=== PATIENT | female | born 1980 | race Caucasian/White ===

== ENCOUNTER 2022-02-07 05:33 | Emergency (ER) | payer MEDICAID, OTHER ==
[~2022-02-07] VITALS: Ht 172.7 cm; Wt 79.0 kg
[~2022-02-07 05:33] MED LIST: ARIP10TA38 PO; FLUO10CA24 PO; TRUVT PO; [UNRECOGNIZED DRUG - CODE] PO
[2022-02-07 05:39] VITALS: BP 130/90
[2022-02-07 08:25] LABS: BASOPHILS % (AUTO) 0.9 % (0.0-2.0); EOSINOPHILS % (AUTO) 0.8 % (1.0-6.0); HEMOGLOBIN 13.3 g/dL (12.0-16.0); LYMPHOCYTES # (AUTO) 2.1 K/uL (1.0-4.8); LYMPHOCYTES % (AUTO) 49.9 % (22.0-44.0); MEAN CORPUSCULAR HEMOGLOBIN 33.7 pg (26.0-34.0); MEAN CORPUSCULAR HGB CONC 35.1 G/dL (31.0-37.0); MEAN CORPUSCULAR VOLUME 96 fL (80-100); MONOCYTES # (AUTO) 0.4 K/uL (0.1-1.0); MONOCYTES % (AUTO) 10.3 % (2.0-9.0); NEUTROPHILS # (AUTO) 1.6 K/uL (1.8-7.7); NEUTROPHILS % (AUTO) 38.1 % (40.0-70.0); PLATELET COUNT (AUTO) 238 K/uL (150-450); RED BLOOD CELL COUNT(AUTO) 3.95 MIL/uL (4.00-5.20); RED CELL DISTRIBUTION WIDTH 14.2 % (11.5-14.5)
[2022-02-07 08:41] LABS: ALANINE AMINOTRANSFERASE 15 U/L (12-78); ALBUMIN 3.5 g/dL (3.4-5.0); ALKALINE PHOSPHATASE 92 U/L (46-116); ANION GAP 7 mmol/L (8-16); ASPARTATE AMINOTRANSFERASE 27 U/L (15-37); BILIRUBIN,TOTAL 0.4 mg/dL (0.1-1.0); CARBON DIOXIDE 29 mmol/L (22-29); CHLORIDE 105 mmol/L (98-107); CREATININE 0.97 mg/dL (0.60-1.30); GLUCOSE,RANDOM 99 mg/dL (70-110); SODIUM SERUM 141 mmol/L (136-145); TOTAL PROTEIN, SERUM 7.2 g/dL (6.4-8.2); UREA NITROGEN, BLOOD 13 mg/dL (7-18)
[2022-02-07 08:45] LABS: GLOMERULAR FILTR. RATE CALC > 60 mL/min (>60); POTASSIUM 2.8 mmol/L (3.5-5.1)
[2022-02-07] MEDS ORDERED: QUEtiapine FUMARATE 25 MG TABLET PO ONE (09:45)
[2022-02-07] MEDS ORDERED: LORazepam 1 MG TABLET PO ONE (09:45)
[2022-02-07] MEDS ORDERED: POTASSIUM CHLORIDE 20 MEQ ER TABLET PO ONE (10:00)
[2022-02-14] MEDS ORDERED: VALA100026 PO (12:59)
[2022-02-14] MEDS ORDERED: DIVA-112 PO (12:59)
[2022-02-14] MEDS ORDERED: BICT1TAB PO (12:59)
[2022-02-14] MEDS ORDERED: PREG100C55 PO (12:59)
[2022-02-14] MEDS ORDERED: OMEP20CA13 PO (12:59)
[2022-02-14] MEDS ORDERED: DULO-114 PO (12:59)
[2022-02-14] MEDS ORDERED: PRAZ1 PO (12:59)
[2022-02-14] MEDS ORDERED: ATOR40TA71 PO (12:59)
[2022-02-14] MEDS ORDERED: LIDO700A30 TD (12:59)
[2022-02-14] MEDS ORDERED: HYDR-4808 PO (12:59)
[2022-02-14] MEDS ORDERED: EPIN0.3P19 IM (12:59)
[2022-02-14] MEDS ORDERED: TRAZ-252 PO (12:59)
== END 2022-02-07 10:48 | disposition home or self-care (01) ==
LOC: EMS 06:33
DX: F41.9 Anxiety disorder, unspecified (principal); E87.6 Hypokalemia; F20.9 Schizophrenia, unspecified; F17.210 Nicotine dependence, cigarettes, uncomplicated; F15.90 Other stimulant use, unspecified, uncomplicated; Z86.59 Personal history of other mental and behavioral disorders; Z90.49 Acquired absence of other specified parts of digestive tract; Z88.2 Allergy status to sulfonamides; Z88.8 Allergy status to other drugs, medicaments and biological substances
CPT/HCPCS: 99284; 80053; 85025; 36415; G0480

== ENCOUNTER 2022-02-10 19:00 | Emergency (ER) | payer MEDICAID ==
[~2022-02-10] VITALS: Ht 160 cm; Wt 77.3 kg
[2022-02-10 20:11] LABS: COVID AG,FIA SOURCE NASOPHARYNGEAL
[2022-02-10 20:43] LABS: INFLUENZA TYPE A NEGATIVE FOR TYPE A (NEGATIVE); INFLUENZA TYPE B NEGATIVE FOR TYPE B (NEGATIVE)
[2022-02-10 21:25] LABS: BASOPHILS % (AUTO) 0.2 % (0.0-2.0); EOSINOPHILS % (AUTO) 0.5 % (1.0-6.0); HEMATOCRIT 40.7 % (36-46); HEMOGLOBIN 13.8 g/dL (12.0-16.0); LYMPHOCYTES # (AUTO) 2.9 K/uL (1.0-4.8); LYMPHOCYTES % (AUTO) 42.5 % (22.0-44.0); MEAN CORPUSCULAR HEMOGLOBIN 33.4 pg (26.0-34.0); MEAN CORPUSCULAR VOLUME 98 fL (80-100); MONOCYTES # (AUTO) 0.6 K/uL (0.1-1.0); MONOCYTES % (AUTO) 8.5 % (2.0-9.0); NEUTROPHILS # (AUTO) 3.3 K/uL (1.8-7.7); NEUTROPHILS % (AUTO) 48.3 % (40.0-70.0); PLATELET COUNT (AUTO) 303 K/uL (150-450); RED BLOOD CELL COUNT(AUTO) 4.14 MIL/uL (4.00-5.20); RED CELL DISTRIBUTION WIDTH 14.7 % (11.5-14.5)
[2022-02-10 21:39] LABS: ALBUMIN 3.5 g/dL (3.4-5.0); BILIRUBIN,TOTAL 0.4 mg/dL (0.1-1.0); CALCIUM, TOTAL 9.4 mg/dL (8.8-10.5); CREATININE 1.04 mg/dL (0.60-1.30); TOTAL PROTEIN, SERUM 7.6 g/dL (6.4-8.2)
[2022-02-10] MEDS ORDERED: POTASSIUM CHLORIDE 20 MEQ ER TABLET PO ONE (22:30)
[2022-02-10] MEDS ORDERED: ALBUTEROL SULFATE HFA 90 MCG/PUFF 8 GM INHALER IH ONE (22:45)
[2022-02-10 23:23] VITALS: BP 122/66
[2022-02-14] MEDS ORDERED: PRAZ1 PO (12:59)
[2022-02-14] MEDS ORDERED: LIDO700A30 TD (12:59)
[2022-02-14] MEDS ORDERED: TRAZ-252 PO (12:59)
[2022-02-14] MEDS ORDERED: EPIN0.3P19 IM (12:59)
[2022-02-14] MEDS ORDERED: DULO-114 PO (12:59)
[2022-02-14] MEDS ORDERED: VALA100026 PO (12:59)
[2022-02-14] MEDS ORDERED: PREG100C55 PO (12:59)
[2022-02-14] MEDS ORDERED: DIVA-112 PO (12:59)
[2022-02-14] MEDS ORDERED: OMEP20CA13 PO (12:59)
[2022-02-14] MEDS ORDERED: ATOR40TA71 PO (12:59)
[2022-02-14] MEDS ORDERED: HYDR-4808 PO (12:59)
[2022-02-14] MEDS ORDERED: BICT1TAB PO (12:59)
== END 2022-02-10 23:29 | disposition home or self-care (01) ==
LOC: EMS 19:01
DX: J45.909 Unspecified asthma, uncomplicated (principal); E87.6 Hypokalemia; F15.10 Other stimulant abuse, uncomplicated; F17.210 Nicotine dependence, cigarettes, uncomplicated; F20.9 Schizophrenia, unspecified; Z86.59 Personal history of other mental and behavioral disorders; Z90.49 Acquired absence of other specified parts of digestive tract; Z88.2 Allergy status to sulfonamides; Z88.8 Allergy status to other drugs, medicaments and biological substances; Z20.822 Contact with and (suspected) exposure to COVID-19
CPT/HCPCS: 71045; 80053; 84703; 85025; 87804; 94640; 99284; 99406; J3535; 36415-L1; 36415-TC

== ENCOUNTER 2022-02-12 23:15 | Emergency (ER) | payer MEDICAID ==
[~2022-02-12] VITALS: Ht 160 cm; Wt 80.9 kg
[2022-02-13] MEDS ORDERED: OLANZapine 5 MG TABLET PO ONE (00:45)
[2022-02-13 01:00] VITALS: BP 100/72
[2022-02-13 01:04] LABS: BASOPHILS % (AUTO) 0.4 % (0.0-2.0); EOSINOPHILS % (AUTO) 1.2 % (1.0-6.0); HEMATOCRIT 39.2 % (36-46); HEMOGLOBIN 13.4 g/dL (12.0-16.0); LYMPHOCYTES # (AUTO) 3.1 K/uL (1.0-4.8); LYMPHOCYTES % (AUTO) 39.4 % (22.0-44.0); MEAN CORPUSCULAR HEMOGLOBIN 33.5 pg (26.0-34.0); MEAN CORPUSCULAR HGB CONC 34.2 G/dL (31.0-37.0); MEAN CORPUSCULAR VOLUME 98 fL (80-100); MONOCYTES # (AUTO) 0.7 K/uL (0.1-1.0); MONOCYTES % (AUTO) 8.3 % (2.0-9.0); NEUTROPHILS % (AUTO) 50.7 % (40.0-70.0); PLATELET COUNT (AUTO) 276 K/uL (150-450); RED BLOOD CELL COUNT(AUTO) 3.99 MIL/uL (4.00-5.20); RED CELL DISTRIBUTION WIDTH 15.3 % (11.5-14.5)
[2022-02-13 01:08] LABS: ANION GAP -2 mmol/L (8-16); CALCIUM, TOTAL 9.4 mg/dL (8.8-10.5); CARBON DIOXIDE 33 mmol/L (22-29); CHLORIDE 104 mmol/L (98-107); CREATININE 1.05 mg/dL (0.60-1.30); GLUCOSE,RANDOM 87 mg/dL (70-110); SODIUM SERUM 135 mmol/L (136-145); UREA NITROGEN, BLOOD 21 mg/dL (7-18)
[2022-02-13 01:09] LABS: GLOMERULAR FILTR. RATE CALC 57 mL/min (>60)
[2022-02-13 01:14] LABS: ALANINE AMINOTRANSFERASE 14 U/L (12-78); ALBUMIN 3.1 g/dL (3.4-5.0); ALKALINE PHOSPHATASE 100 U/L (46-116); ASPARTATE AMINOTRANSFERASE 20 U/L (15-37); BILIRUBIN,TOTAL 0.4 mg/dL (0.1-1.0); TOTAL PROTEIN, SERUM 6.8 g/dL (6.4-8.2)
[2022-02-13 01:41] LABS: COVID AG,FIA SOURCE NASAL SWAB
[2022-02-14] MEDS ORDERED: DULO-114 PO (12:59)
[2022-02-14] MEDS ORDERED: TRAZ-252 PO (12:59)
[2022-02-14] MEDS ORDERED: LIDO700A30 TD (12:59)
[2022-02-14] MEDS ORDERED: VALA100026 PO (12:59)
[2022-02-14] MEDS ORDERED: DIVA-112 PO (12:59)
[2022-02-14] MEDS ORDERED: PRAZ1 PO (12:59)
[2022-02-14] MEDS ORDERED: PREG100C55 PO (12:59)
[2022-02-14] MEDS ORDERED: HYDR-4808 PO (12:59)
[2022-02-14] MEDS ORDERED: ATOR40TA71 PO (12:59)
[2022-02-14] MEDS ORDERED: EPIN0.3P19 IM (12:59)
[2022-02-14] MEDS ORDERED: OMEP20CA13 PO (12:59)
[2022-02-14] MEDS ORDERED: BICT1TAB PO (12:59)
== END 2022-02-13 02:57 | disposition home or self-care (01) ==
LOC: EMS 23:16
DX: F20.9 Schizophrenia, unspecified (principal); F17.210 Nicotine dependence, cigarettes, uncomplicated; F15.90 Other stimulant use, unspecified, uncomplicated; Z87.09 Personal history of other diseases of the respiratory system; Z86.59 Personal history of other mental and behavioral disorders; Z90.49 Acquired absence of other specified parts of digestive tract; Z88.2 Allergy status to sulfonamides; Z88.8 Allergy status to other drugs, medicaments and biological substances; Z20.822 Contact with and (suspected) exposure to COVID-19
CPT/HCPCS: 99284; 87426; 80053; 85025; 36415; G0480

== ENCOUNTER 2022-04-10 01:37 | Emergency (ER) | payer MEDICAID, OTHER ==
[~2022-04-10] VITALS: Ht 160 cm; Wt 67.0 kg
[~2022-04-10 01:37] MED LIST changes: +ATOR40TA71 PO; +BICT1TAB PO; +DIVA-112 PO; +DULO-114 PO; +EPIN0.3P19 IM; -FLUO10CA24 PO; +HYDR-4808 PO; +LIDO700A30 TD; +OMEP20CA13 PO; +PRAZ1 PO; +PREG100C55 PO; +TRAZ-252 PO; -TRUVT PO; +VALA100026 PO; -[UNRECOGNIZED DRUG - CODE] PO
[2022-04-10 01:51] VITALS: BP 127/75
[2022-04-10 02:38] LABS: COVID AG,FIA SOURCE NASAL SWAB
[2022-04-10 03:10] LABS: INFLUENZA TYPE A NEGATIVE FOR TYPE A (NEGATIVE); INFLUENZA TYPE B NEGATIVE FOR TYPE B (NEGATIVE)
== END 2022-04-10 05:17 | disposition left against medical advice (07) ==
LOC: EMS 01:41
DX: Z53.21 Procedure and treatment not carried out due to patient leaving prior to being seen by health care provider (principal); Z20.822 Contact with and (suspected) exposure to COVID-19
CPT/HCPCS: 87804

== ENCOUNTER 2022-08-02 21:15 | Emergency (ER) | payer OTHER ==
[~2022-08-02] VITALS: Ht 162.6 cm; Wt 55.0 kg
[2022-08-02 21:27] VITALS: BP 105/60
[2022-08-03] MEDS ORDERED: PERTUSS(ACELL),DIPH,TET VAC/PF 0.5 ML SYRINGE IM. ONE (01:15)
[2022-08-03] MEDS ORDERED: LOPERAMIDE HCL 2 MG CAPSULE PO ONE (01:15)
== END 2022-08-03 01:31 | disposition home or self-care (01) ==
LOC: EMS 21:27
DX: S91.332A Puncture wound without foreign body, left foot, initial encounter (principal); R19.7 Diarrhea, unspecified; F15.90 Other stimulant use, unspecified, uncomplicated; F20.9 Schizophrenia, unspecified; F17.210 Nicotine dependence, cigarettes, uncomplicated; Z90.49 Acquired absence of other specified parts of digestive tract; Z88.2 Allergy status to sulfonamides; Z88.8 Allergy status to other drugs, medicaments and biological substances; Z98.890 Other specified postprocedural states; W45.0XXA Nail entering through skin, initial encounter; Y93.89 Activity, other specified; Y92.89 Other specified places as the place of occurrence of the external cause; Y99.8 Other external cause status
CPT/HCPCS: 90471; 90715; 99283

== ENCOUNTER 2024-03-07 09:38 | Emergency (ER) | payer OTHER ==
[~2024-03-07] VITALS: Ht 160 cm; Wt 68.2 kg
[~2024-03-07 09:38] MED LIST changes: -PREG100C55 PO; +PREG100C56 PO
[2024-03-07 09:44] VITALS: BP 120/78; PULSE 78; RESP 18; TEMP 97.9; O2SAT 99
[2024-03-07] MEDS: ACETAMINOPHEN 500 MG TABLET PO ONE (10:10)
== END 2024-03-07 12:38 | disposition home or self-care (01) ==
LOC: EMS 09:38
DX: S09.90XA Unspecified injury of head, initial encounter (principal); F20.9 Schizophrenia, unspecified; Z88.2 Allergy status to sulfonamides; Z79.624 Long term (current) use of inhibitors of nucleotide synthesis; Z79.899 Other long term (current) drug therapy; Z90.49 Acquired absence of other specified parts of digestive tract; Z91.199 Patient's noncompliance with other medical treatment and regimen due to unspecified reason; W22.8XXA Striking against or struck by other objects, initial encounter; Y93.89 Activity, other specified; Y92.89 Other specified places as the place of occurrence of the external cause; Y99.8 Other external cause status
CPT/HCPCS: 70450; 72125; 99284

== ENCOUNTER 2024-11-27 12:25 | Emergency (ER) | payer MEDICAID, OTHER ==
[~2024-11-27] VITALS: Ht 154.9 cm; Wt 65.9 kg
[~2024-11-27 12:25] MED LIST changes: +CEPH-558 PO; -DULO-114 PO; +DULO30CA89 PO; -EPIN0.3P19 IM; -HYDR-4808 PO; -LIDO700A30 TD; -TRAZ-252 PO
[2024-11-27 13:25] VITALS: TEMP 97.1
[2024-11-27 14:05] LABS: BASOPHILS % (AUTO) 0.4 % (0.0-2.0); EOSINOPHILS % (AUTO) 0.1 % (1.0-6.0); HEMATOCRIT 37.5 % (36-46); HEMOGLOBIN 13.3 g/dL (12.0-16.0); LYMPHOCYTES # (AUTO) 2.6 K/uL (1.0-4.8); LYMPHOCYTES % (AUTO) 27.8 % (22.0-44.0); MEAN CORPUSCULAR HEMOGLOBIN 35.1 pg (26.0-34.0); MEAN CORPUSCULAR HGB CONC 35.4 G/dL (31.0-37.0); MEAN CORPUSCULAR VOLUME 99 fL (80-100); MONOCYTES # (AUTO) 1.1 K/uL (0.1-1.0); MONOCYTES % (AUTO) 11.6 % (2.0-9.0); NEUTROPHILS # (AUTO) 5.6 K/uL (1.8-7.7); NEUTROPHILS % (AUTO) 60.1 % (40.0-70.0); PLATELET COUNT (AUTO) 250 K/uL (150-450); RED BLOOD CELL COUNT(AUTO) 3.79 MIL/uL (4.00-5.20); RED CELL DISTRIBUTION WIDTH 12.1 % (11.5-14.5); WHITE BLOOD COUNT (AUTO) 9.3 K/uL (4.5-11.0)
[2024-11-27 14:09] LABS: COVID AG,FIA SOURCE NASAL SWAB
[2024-11-27 14:13] LABS: CALCIUM, TOTAL 8.6 mg/dL (8.8-10.5); CREATININE 1.01 mg/dL (0.60-1.30)
[2024-11-27 14:15] LABS: POTASSIUM 2.5 mmol/L (3.5-5.1)
[2024-11-27 14:30] LABS: SARS-COV2 (COVID) ANTIGEN,FIA Negative (Negative)
[2024-11-27] MEDS: POTASSIUM CHLORIDE 20 MEQ ER TABLET PO ONE (15:51)
[2024-11-27] MEDS: OLANZapine 5 MG TABLET PO ONE ×2 (16:53→21:24)
[2024-11-27 21:35] VITALS: BP 124/74; PULSE 71; RESP 16; O2SAT 96
== END 2024-11-27 22:32 | disposition home or self-care (01) ==
LOC: EMS 13:05
DX: F20.9 Schizophrenia, unspecified (principal); F15.10 Other stimulant abuse, uncomplicated; F17.210 Nicotine dependence, cigarettes, uncomplicated; Z79.624 Long term (current) use of inhibitors of nucleotide synthesis; Z88.2 Allergy status to sulfonamides; Z90.49 Acquired absence of other specified parts of digestive tract; Z79.899 Other long term (current) drug therapy; Z20.822 Contact with and (suspected) exposure to COVID-19
CPT/HCPCS: 99284; 87426; 80048; 80164; 85025; 36415; G0480